=== PATIENT | male | born 1980 | race Caucasian/White ===

== ENCOUNTER 2018-10-12 06:55 | Emergency (ER) | payer OTHER ==
[~2018-10-12] VITALS: Ht 182.9 cm; Wt 97.5 kg
[2018-10-12] MEDS ORDERED: CLOTRIMAZOLE 1%15 G1 TOP (07:25)
[2018-10-12 07:42] LABS: CALCIUM 8.3 mg/dL (8.5-10.1); CREATININE 1.1 mg/dL (0.6-1.3); POTASSIUM 3.6 mmol/L (3.5-5.1)
[2018-10-12] MEDS ORDERED: IBUPROFEN 800800 M1 PO (07:57)
[2018-10-12 08:06] VITALS: BP 139/88
== END 2018-10-12 08:06 | disposition home or self-care (01) ==
LOC: M.ERS 06:55
PROVIDERS: Emergency Medicine Emergency Medical Services
DX: M79.671 Pain in right foot (principal); M79.672 Pain in left foot

== ENCOUNTER 2019-07-24 11:54 | Emergency (ER) | payer OTHER ==
[~2019-07-24] VITALS: Ht 182.9 cm; Wt 90.7 kg
[~2019-07-24 11:54] MED LIST: CLOTRIMAZOLE 1%15 G1 TOP; IBUPROFEN 800800 M1 PO
[2019-07-24 12:54] VITALS: BP 148/89
== END 2019-07-24 12:54 | disposition home or self-care (01) ==
LOC: M.ERS 11:54
DX: J11.1 Influenza due to unidentified influenza virus with other respiratory manifestations (principal)